=== PATIENT | male | born 1980 | race Caucasian/White ===

== ENCOUNTER 2018-09-11 08:44 | Emergency (ER) | payer BC, OTHER ==
[2018-09-11] MEDS ORDERED: LIDOCAINE 4%/MENTHOL 1% PATCH TD ONE (09:15)
--- NOTE | 2018-09-11 09:15 | EDPHY ---
H & P Stated Complaint: R lumbar pain - Personal History Current Tetanus/Diphtheria Vaccine: Yes Current Tetanus Diphtheria and Acellular Pertussis (TDAP): Yes Tetanus Vaccine Date: 10YRS - Medical/Surgical History Hx Asthma: No Hx Chronic Respiratory Disease: No Hx Diabetes: No Hx Cardiac Disease: No Hx Renal Disease: No Hx Cirrhosis: No Hx Alcoholism: No Hx HIV/AIDS: No Hx Splenectomy or Spleen Trauma: No Other PMH: PSH: UNDESCCENTED TESTICLE - Social History Smoking Status: Never smoked Time Seen by Provider: 09/11/18 09:01 HPI/ROS: CHIEF COMPLAINT: Right paraspinous lumbar back pain HISTORY OF PRESENT ILLNESS: 38-year-old male generally healthy complaining of 5 days of atraumatic right lumbar paraspinous back pain which occurred after multiple days of back to back skiing and driving back from [place]. Pain is reproducible with flexion and range of motion at the waist. No direct trauma or fall. No incontinence no retention. No saddle anesthesia. No IV drug use history. No fever chills. No flu-like symptoms. REVIEW OF SYSTEMS: A ten point review of systems was performed and is negative with the exception of the items mentioned in the HPI PAST MEDICAL & SURGICAL HISTORY: No pertinent medical or surgical history SOCIAL HISTORY: . 2-1/2-year-old son. Nonsmoker. No drug use. PHYSICAL EXAM (Prior to examination, patient consented to physical exam, hands were washed and my usual and customary physical exam procedures followed) 1) GENERAL: Well-developed, well-nourished, alert and oriented. Appears to be in no acute distress. Smiling, shakes my hand 2) HEAD: Normocephalic, atraumatic 3) HEENT: Pupils equal, round, reactive to light bilaterally. Sclera anicteric. Nasopharynx, oropharynx, clear, no lesions. 4) NECK: Full range of motion, no meningeal signs. 5) LUNGS: Clear auscultation bilaterally, no wheezes, no rhonchi, no retractions. 6) HEART: Regular rate and rhythm, no murmur, no heave, no gallop. 7) ABDOMEN: No guarding, no rebound, no focal tenderness, negative McBurney's, negative Whitmore's, negative Rovsing's, negative peritoneal sign, 8) MUSCULOSKELETAL: Moving all extremities, no focal areas of tenderness, no obvious trauma. No peripheral edema or discoloration. 9) BACK: tender to palpation right paraspinous lumbar muscle. Positive straight leg lift test on right leg approximately 20 degrees. No CVA tenderness , no midline vertebral tenderness, no fluctuance, no step-off, no obvious trauma , no visual or palpable abnormality. Patella, Achilles reflexes intact to bilateral strength 5/5 10) SKIN: No rash, no petechiae. 11) NEURO: Awake, alert, and oriented to person, place and time. Answers questions appropriately. There were no obvious focal neurologic abnormalities. No cerebellar dysfunction. Normal steady gait. Upper and lower extremities bilaterally with strength 5 / 5, reflexes 2+.. DIFFERENTIAL DIAGNOSIS: In no particular order, including but not limited to, fracture, sprain/strain, cauda equina, spinal infectious etiology myofascial strain. (Eloy Berry) Constitutional: Initial Vital Signs Temperature (C) 36.6 C 09/11/18 08:50 Heart Rate 58 L 09/11/18 08:50 Respiratory Rate 16 09/11/18 08:50 Blood Pressure 107/66 09/11/18 08:50 O2 Sat (%) 98 09/11/18 08:50 O2 Delivery Mode Room Air Allergies/Adverse Reactions: No Known Allergies Allergy (Verified 09/11/18 08:49) Home Medications: Medication Instructions Recorded Advil 09/11/18 Lidocaine [Lidoderm] 1 each TP BID #30 adh..patch 09/11/18 Medical Decision Making ED Course/Re-evaluation: Lower index of suspicion for cauda equina, epidural abscess, epidural hematoma, lumbar myositis, diskitis, as the patient is neurologically intact in the lower extremities, has patella and Achilles reflexes intact and equal bilaterally, has no neurologic deficits, no incontinence, no retention, no midline pain, no fluctuance, afebrile, no flulike symptoms. Pain may be secondary to muscular strain, may be secondary to discogenic etiology. At this point I do not identify definitive indication for emergent MRI, however patient may necessitate this on an outpatient basis. Patient given acute back pain precautions. I have offered Lidoderm patches and Flexeril. He declines Flexeril. Have recommend he establish primary care and have given him the name of on-call outpatient adult medicine provider to establish care. Patient verbalizes understanding of discharge instructions. I believe them be competent decision-makers. All questions and concerns have been addressed by me. Ample opportunity for questions have been provided . The patient understands that this diagnosis is provisional and can never be 100% accurate. Usual and customary warnings were given concerning the clinical impression and all the patient's questions were answered. The patient was instructed to return to the emergency department should her symptoms worsen or return, or develop any new symptoms, otherwise to followup as directed in discharge instructions. (Eloy Berry) Other Provider: PHYSICIAN DOCUMENTATION: The patient was evaluated and managed by the Physician Drugless Physician. My co- signature indicates that I have reviewed this chart and I agree with the findings and plan of care as documented. I am the secondary supervising physician. (Emir Hair) - Data Points Medications Given: Miscellaneous Information (Patch Removal) 1 ea TD [id number] LUISA Stop: 03/10/19 20:59 Last Admin: 09/11/18 09:23 Dose: Not Given Discontinued Medications Miscellaneous Medication (Icy Hot Lidocaine/Menthol 4%/1% Patch) 1 patch TD EDNOW ONE Stop: 09/11/18 09:16 Last Admin: 09/11/18 09:19 Dose: 1 patch Departure - Departure Disposition: Home, Routine, Self-Care Clinical Impression: Acute low back pain Condition: Good Instructions: Acute Low Back Pain (ED) Additional Instructions: Seek medical attention if you develop new or worsening pain, if you develop bladder or bowel dysfunction, numbness around your perineum, foot drop, or any other symptoms that concern you. Referrals: Vidya Long MD [[facility] Primary Care Provider] - 2-3 days, call for appt. ( Dr. Vidya Long is a primary care provider .I recommend you establish primary care) Prescriptions: Lidocaine [Lidoderm] 1 each TP BID #30 adh..patch
[2018-09-11 09:30] VITALS: BP 128/75
[2018-09-11] MEDS ORDERED: PATCH REMOVAL 1 EA PATCH TD SCH (21:00)
== END 2018-09-11 09:20 | disposition home or self-care (01) ==
DX: M54.5 Low back pain (principal)